=== PATIENT | female | born 1940 | race Caucasian/White ===

== ENCOUNTER 2019-05-25 16:35 | Inpatient (IN) | payer MEDICARE, OTHER ==
--- NOTE | 2019-05-25 17:05 | EDM.PDOC ---
ED HPI GENERAL MEDICAL PROBLEM - General Chief Complaint: General Stated Complaint: NVD,FLU,WEAKNESS Time Seen by Provider: 05/25/19 17:00 Source of Information: Reports: Patient, Family (Patient's son) History Limitations: Reports: Altered Mental Status (Patient resides at a memory unit and is a somewhat poor historian.) - History of Present Illness INITIAL COMMENTS - FREE TEXT/NARRATIVE: 79-year-old female who presents via private vehicle with her son from [facility] unit with reports of her having progressively increasing weakness and confusion since having vomiting and diarrhea last week. The vomiting and diarrhea have resolved but the patient continues to have weakness and poor by mouth intake. She has also had decreased urine output. She was seen and the [facility] in [place] on Thursday of this week and was able to provide a urine on Thursday and was felt to have a urinary tract infection. She was placed on ciprofloxacin for treatment of this UTI and has taken 2 days of the ciprofloxacin without any improvement in her weakness and in fact the son feels that she has actually progressively worsened since Thursday. The patient has dementia and cannot provide me with any history. She is also not able to provide me with any more information on pain either past or present. All the history comes from the son. The patient denied any pain to me. He does report that his mother was complaining of some lower back pain on Thursday but has not complained of any pain since then. No cough. No appearance of shortness of breath. No measured fevers. She did seem to be somewhat clammy and sweaty to the son today. This is all the history that I can obtain. There are no other associated signs or symptoms. There are no other modifying factors. Onset: Other (Last week with progressive weakness since last week) Duration: Getting Worse Location: Reports: Other (As above) Quality: Reports: Other (As above) Severity: Moderate (The weakness is moderate to severe) Improves with: Reports: None Worsens with: Reports: None Context: Reports: Other (As above) Associated Symptoms: Reports: Confusion (Worsening confusion), Diaphoresis, Loss of Appetite, Malaise, Weakness, Other (Poor by mouth intake) Treatments COOLER TENDER: Reports: Other Medication(s) (Ciprofloxacin) - Related Data Allergies Allergy/AdvReac Type Severity Reaction Status Date / Time No Known Allergies Allergy Verified 05/25/19 17:20 Home Meds: Home Meds Aspirin [Elle Chewable Aspirin] 81 mg PO 09/27/13 [History] Citalopram Hydrobromide [Celexa] 10 mg PO DAILY 09/27/13 [History] Donepezil HCl [Aricept] 10 mg PO 09/27/13 [History] Memantine HCl [Namenda Xr] 28 mg PO 09/27/13 [History] atorvaSTATin [Lipitor] 40 mg PO 09/27/13 [History] hydroCHLOROthiazide [Hydrochlorothiazide] 25 mg PO 09/27/13 [History] Calcium Carbonate [Tums] 200 mg PO ,03/20/16 [History] Ciprofloxacin [Ciprofloxacin HCl] 250 mg PO BID 05/25/19 [History] Lisinopril 20 mg PO 05/25/19 [History] metFORMIN [Glucophage] 500 mg PO ,05/25/19 [History] traZODone 50 mg PO 05/25/19 [History] Past Medical History Cardiovascular History: Reports: High Cholesterol, Hypertension Respiratory History: Reports: COPD Gastrointestinal History: Reports: GERD 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 Other Musculoskeletal History: LEFT SHOULDER FRACTURE Psychiatric History: Reports: Dementia - Past Surgical History Female Surgical History: Reports: Breast Biopsy Musculoskeletal Surgical History: Reports: Other (See Below) (Knee surgery) Social & Family History - Family History Family Medical History: Noncontributory - Tobacco Use Smoking Status *Q: Former Smoker (Nonsmoker for the past 3 years but was a heavy smoker prior to this.) - Caffeine Use Caffeine Use: Reports: Coffee, Soda, Tea - Alcohol Use Alcohol Use History: No - Living Situation & Occupation Living situation: Reports: Assisted Living (She lives in the memory unit at [facility]. She is here with her son.) Occupation: Retired ED ROS GENERAL - Review of Systems Review Of Systems: Unable To Obtain (The patient cannot provide me any of this information. The son provides me with any information that I get from this under the history of present illness) Reason Not Obtained: Dementia ED EXAM, GENERAL - Physical Exam Exam: See Below Exam Limited By: No Limitations General Appearance: Alert, Mild Distress, Obese, Other (Somewhat clammy.) Eye Exam: Bilateral Eye: EOMI, Normal Inspection, PERRL Ears: Normal External Exam, Hearing Grossly Normal Ear Exam: Bilateral Ear: Auricle Normal Nose: Normal Inspection, Normal Mucosa, No Blood Throat/Mouth: Normal Voice, No Airway Compromise, Other (Dry mucous membranes) Head: Atraumatic, Normocephalic Neck: Normal Inspection, Supple, Non-Tender, Full Range of Motion Respiratory/Chest: No Respiratory Distress, Lungs Clear, Normal Breath Sounds, No Accessory Muscle Use, Chest Non-Tender Cardiovascular: Normal Peripheral Pulses, Regular Rate, Rhythm, No JVD, No Murmur Peripheral Pulses: 2+: Radial (L), Radial (R) GI/Abdominal: Normal Bowel Sounds, Soft, Tender (Mild tenderness diffusely.), Other (Protuberant). No: Rebound Back Exam: Normal Inspection, Full Range of Motion Extremities: Normal Inspection, Normal Range of Motion, Non-Tender, No Pedal Edema, Normal Capillary Refill Neurological: Alert, CN II-XII Intact, No Motor/Sensory Deficits, Confused, Disoriented Skin Exam: Intact, No Rash, Diaphoretic, Pallor EKG INTERPRETATION EKG Date: 05/25/19 Time: 17:52 Rhythm: NSR Rate (Beats/Min): 89 [place]: LAD-Left [place] Deviation P-Wave: Present QRS: Other (Borderline IVCD) ST-T: Normal QT: Normal Comparison: NA - No Prior EKG EKG Interpretation Comments: No current of injury or ischemia is present. Course - Vital Signs Last Recorded V/S: Last Vital Signs Temp 36.8 C 05/25/19 18:56 Pulse 82 05/25/19 18:56 Resp 18 05/25/19 18:56 BP 141/76 H 05/25/19 18:56 Pulse Ox 97 05/25/19 18:56 - Orders/Labs/Meds Orders: Active Orders 24 hr Category Date Time Status Admission Status [Patient Status] [ADT] Routine ADT 05/25/19 20:45 Ordered Bladder Scan [RC] ASDIRECTED Care 05/25/19 17:58 Active Insert Urinary Catheter [OM.PC] Q24H Care 05/25/19 17:30 Ordered Abdomen Pelvis w wo Cont [CT] Stat Exams 05/25/19 19:21 Taken Chest 1V Frontal [CR] Stat Exams 05/25/19 17:27 Taken Head wo Cont [CT] Stat Exams 05/25/19 17:27 Taken CULTURE BLOOD [BC] Urgent Lab 05/25/19 19:28 Received CULTURE BLOOD [BC] Urgent Lab 05/25/19 19:35 Received CULTURE URINE [RM] Stat Lab 05/25/19 19:17 Received Sodium Chloride 0.9% [Normal Saline] 1,000 ml Med 05/25/19 18:45 Active IV ASDIRECTED Sodium Chloride 0.9% [Saline Flush] Med 05/25/19 17:24 Active 10 ml FLUSH ASDIRECTED PRN Blood Culture x2 Reflex Set [OM.PC] Urgent Oth 05/25/19 19:20 Ordered Peripheral IV Insertion Adult [OM.PC] Routine Oth 05/25/19 17:24 Ordered EKG 12 Lead [EK] Routine Ther 05/25/19 17:24 Ordered Medication Orders Sodium Chloride (Normal Saline) 1,000 mls @ 125 mls/hr IV ASDIRECTED UNRULY Last Infusion: 05/25/19 20:30 Dose: 125 mls/hr Infusion: 05/25/19 19:59 Dose: 999 mls/hr Admin: 05/25/19 19:21 Dose: 125 mls/hr Sodium Chloride (Saline Flush) 10 ml FLUSH ASDIRECTED PRN PRN Reason: Keep Vein Open Last Admin: 05/25/19 17:50 Dose: 10 ml Labs: Laboratory Tests 05/25/19 05/25/19 05/25/19 Range/Units 18:10 18:10 18:10 WBC 12.6 H (4.5-12.0) X10-3/uL RBC 3.90 (3.23-5.20) x10(6)uL Hgb 11.8 (11.5-15.5) g/dL Hct 34.7 (30.0-51.3) % MCV 88.8 (80-96) fL MCH 30.2 (27.7-33.6) pg MCHC 34.0 (32.2-35.4) g/dL RDW 13.8 (11.5-15.5) % Plt Count 305 (125-369) X10(3)uL MPV 8.5 (7.4-10.4) fL Neut % (Auto) 84.6 H (46-82) % Lymph % (Auto) 8.2 L (13-37) % Holmes % (Auto) 6.3 (4-12) % Eos % (Auto) 0 L (1.0-5.0) % Baso % (Auto) 1 (0-2) % Neut # (Auto) 10.6 H (1.6-8.3) # Lymph # (Auto) 1.0 (0.6-5.0) # Holmes # (Auto) 0.8 (0.0-1.3) # Eos # (Auto) 0.1 (0.0-0.8) # Baso # (Auto) 0.1 (0.0-0.2) # Sodium 139 (135-145) mmol/L Potassium 4.3 (3.5-5.3) mmol/L Chloride 99 L (100-110) mmol/L Carbon Dioxide 30 (21-32) mmol/L BUN 49 H (7-18) mg/dL Creatinine 1.5 H (0.55-1.02) mg/dL Est Cr Clr Drug Dosing 26.47 mL/min Estimated GFR (MDRD) 33 L (>60) BUN/Creatinine Ratio 32.7 H (9-20) Glucose 135 H (80-116) mg/dL Lactic Acid (0.4-2.0) mmol/L Calcium 8.9 (8.6-10.2) mg/dL Magnesium 1.6 L (1.8-2.5) mg/dL Total Bilirubin 0.8 (0.1-1.3) mg/dL AST 20 (5-25) IU/L ALT 18 (12-36) U/L Alkaline Phosphatase 65 (56-112) IU/L Troponin I 6.4 (4.0-60.3) pg/mL C-Reactive Protein 10.1 H* (0.5-0.9) mg/dL Total Protein 7.7 (6.0-8.0) g/dL Albumin 3.0 L (3.2-4.6) g/dL Globulin 4.7 g/dL Albumin/Globulin Ratio 0.6 Urine Color (YELLOW) Urine Appearance (CLEAR) Urine pH (5.0-6.5) Ur Specific [place] (1.010-1.025) Urine Protein (NEGATIVE) mg/dL Urine Glucose (UA) (NORMAL) mg/dL Urine Ketones (NEGATIVE) mg/dL Urine Occult Blood (NEGATIVE) Urine Nitrite (NEGATIVE) Urine Bilirubin (NEGATIVE) Urine Urobilinogen (NEGATIVE) mg/dL Ur Leukocyte Esterase (NEGATIVE) Urine RBC (0-5) Urine WBC (0-5) Ur Squamous Epith Cells (NS,R,O) Urine Bacteria (NS) 05/25/19 05/25/19 Range/Units 19:17 19:28 WBC (4.5-12.0) X10-3/uL RBC (3.23-5.20) x10(6)uL Hgb (11.5-15.5) g/dL Hct (30.0-51.3) % MCV (80-96) fL MCH (27.7-33.6) pg MCHC (32.2-35.4) g/dL RDW (11.5-15.5) % Plt Count (125-369) X10(3)uL MPV (7.4-10.4) fL Neut % (Auto) (46-82) % Lymph % (Auto) (13-37) % [place] % (Auto) (4-12) % Eos % (Auto) (1.0-5.0) % Baso % (Auto) (0-2) % Neut # (Auto) (1.6-8.3) # Lymph # (Auto) (0.6-5.0) # Holmes # (Auto) (0.0-1.3) # Eos # (Auto) (0.0-0.8) # Baso # (Auto) (0.0-0.2) # Sodium (135-145) mmol/L Potassium (3.5-5.3) mmol/L Chloride (100-110) mmol/L Carbon Dioxide (21-32) mmol/L BUN (7-18) mg/dL Creatinine (0.55-1.02) mg/dL Est Cr Clr Drug Dosing mL/min Estimated GFR (MDRD) (>60) BUN/Creatinine Ratio (9-20) Glucose (80-116) mg/dL Lactic Acid 1.9 (0.4-2.0) mmol/L Calcium (8.6-10.2) mg/dL Magnesium (1.8-2.5) mg/dL Total Bilirubin (0.1-1.3) mg/dL AST (5-25) IU/L ALT (12-36) U/L Alkaline Phosphatase (56-112) IU/L Troponin I (4.0-60.3) pg/mL C-Reactive Protein (0.5-0.9) mg/dL Total Protein (6.0-8.0) g/dL Albumin (3.2-4.6) g/dL Globulin g/dL Albumin/Globulin Ratio Urine Color Yellow (YELLOW) Urine Appearance Cloudy (CLEAR) Urine pH 5.0 (5.0-6.5) Ur Specific [place] 1.020 (1.010-1.025) Urine Protein Negative (NEGATIVE) mg/dL Urine Glucose (UA) Normal (NORMAL) mg/dL Urine Ketones Negative (NEGATIVE) mg/dL Urine Occult Blood Moderate H (NEGATIVE) Urine Nitrite Negative (NEGATIVE) Urine Bilirubin Negative (NEGATIVE) Urine Urobilinogen Normal (NEGATIVE) mg/dL Ur Leukocyte Esterase Large H (NEGATIVE) Urine RBC 5-10 H (0-5) Urine WBC 75-100 H (0-5) Ur Squamous Epith Cells Few H (NS,R,O) Urine Bacteria Many H (NS) Meds: Medications Generic Name Dose Route Start Last Admin Trade Name Freq PRN Reason Stop Dose Admin Sodium Chloride 1,000 mls @ 125 mls/hr 05/25/19 18:45 05/25/19 20:30 Normal Saline IV 125 mls/hr ASDIRECTED UNRULY Infusion Sodium Chloride 10 ml 05/25/19 17:24 05/25/19 17:50 Saline Flush FLUSH 10 ml ASDIRECTED PRN Administration Keep Vein Open Discontinued Medications Generic Name Dose Route Start Last Admin Trade Name Freq PRN Reason Stop Dose Admin Ceftriaxone Sodium 1 gm 05/25/19 19:21 05/25/19 19:31 Rocephin IVPUSH 05/25/19 19:22 1 gm ONETIME ONE Administration Sodium Chloride 500 mls @ 999 mls/hr 05/25/19 18:42 05/25/19 18:47 Normal Saline IV 05/25/19 19:12 999 mls/hr .BOLUS ONE Administration Sodium Chloride 500 mls @ 999 mls/hr 05/25/19 19:49 Normal Saline IV 05/25/19 20:19 .BOLUS ONE Iopamidol 100 ml 05/25/19 20:01 05/25/19 20:11 Isovue-370 (76%) IV 05/25/19 20:02 100 ml . DIRECTED ONE Administration - Radiology Interpretation Free Text/Narrative:: Chest x-ray shows no acute disease. CT scan of head shows no acute intracranial abnormality per the [facility] radiologist. - Re-Assessments/Exams Free Text/Narrative Re-Assessment/Exam: 05/25/19 19:15: Nursing staff was unable to get a Brooke initially but have been successful now with dark and cloudy appearing urine. Her white blood cell count is 12.6 and her CRP is elevated at 10. She appears to have a urinary tract infection but I will send her over for CT of her abdomen and pelvis secondary to her abdominal pain and the difficulty in evaluating her secondary to her altered mental status and I have also ordered IV fluids as she appears to be dehydrated with acute kidney injury as evidenced on her labs. I have also ordered a lactic acid, blood cultures 2 and IV Rocephin to be given. If the CT of her abdomen and pelvis does not show any other significant problem, I feel that she will need to be admitted for IV antibiotics, IV fluids and close monitoring. She has failed outpatient management of her UTI and dehydration. She will need at least a 2 midnight hospital stay to accomplish this plan of care. 05/25/19 20:00: CT of the patient's abdomen and pelvis showed a large intra- abdominal mass that is roughly the size of a basketball. The endoscopy tech brought this to my attention and I we will also have the patient get the contrast with her CT of her abdomen and pelvis. I discussed this with the patient's son. 05/25/19 20:43: CT scan of the abdomen and pelvis did show large pelvic mass that was concerning for ovarian cancer per the radiologist. I discussed this with the patient's son and the plan will be to admit the patient here for now with IV fluids and IV antibiotics to treat the pyelonephritis with dehydration and acute kidney injury. I did confirm with the time that the patient was a DNR. The pelvic/abdominal mass will need to be addressed but will leave this to the hospitalist. The patient will be admitted as an inpatient and care of the patient will go to Dr. Carlos at 7 AM on 05/26/2019. Departure - Departure Time of Disposition: 20:55 Disposition: Admitted As Inpatient 64 Condition: Fair Clinical Impression: Pyelonephritis, Acute kidney injury, Moderate dehydration, Rapidly progressive weakness, Failure of outpatient treatment, Intra-abdominal and pelvic swelling, mass and lump, unspecified site - Discharge Information Referrals: Eric Salinas MD [Primary Care Provider] - Forms: ED Department Discharge Sepsis Event Note - Evaluation Sepsis Screening Result: No Definite Risk - Focused Exam Vital Signs: Vital Signs Temp Pulse Resp BP Pulse Ox 05/25/19 18:56 36.8 C 82 18 141/76 H 97 05/25/19 16:53 36.6 C 90 16 136/84 98 Date Exam was Performed: 05/25/19 Time Exam was Performed: 20:47 - My Orders Last 24 Hours: My Active Orders 05/25/19 17:24 Sodium Chloride 0.9% [Saline Flush] 10 ml FLUSH ASDIRECTED PRN Peripheral IV Insertion Adult [OM.PC] Routine EKG 12 Lead [EK] Routine 05/25/19 17:27 Chest 1V Frontal [CR] Stat Head wo Cont [CT] Stat 05/25/19 17:30 Insert Urinary Catheter [OM.PC] Q24H 05/25/19 17:58 Bladder Scan [RC] ASDIRECTED 05/25/19 18:45 Sodium Chloride 0.9% [Normal Saline] 1,000 ml IV ASDIRECTED 05/25/19 19:17 CULTURE URINE [RM] Stat 05/25/19 19:20 Blood Culture x2 Reflex Set [OM.PC] Urgent 05/25/19 19:21 Abdomen Pelvis w wo Cont [CT] Stat 05/25/19 19:28 CULTURE BLOOD [BC] Urgent 05/25/19 19:35 CULTURE BLOOD [BC] Urgent 05/25/19 20:45 Admission Status [Patient Status] [ADT] Routine - Assessment/Plan Last 24 Hours: My Active Orders 05/25/19 17:24 Sodium Chloride 0.9% [Saline Flush] 10 ml FLUSH ASDIRECTED PRN Peripheral IV Insertion Adult [OM.PC] Routine EKG 12 Lead [EK] Routine 05/25/19 17:27 Chest 1V Frontal [CR] Stat Head wo Cont [CT] Stat 05/25/19 17:30 Insert Urinary Catheter [OM.PC] Q24H 05/25/19 17:58 Bladder Scan [RC] ASDIRECTED 05/25/19 18:45 Sodium Chloride 0.9% [Normal Saline] 1,000 ml IV ASDIRECTED 05/25/19 19:17 CULTURE URINE [RM] Stat 05/25/19 19:20 Blood Culture x2 Reflex Set [OM.PC] Urgent 05/25/19 19:21 Abdomen Pelvis w wo Cont [CT] Stat 05/25/19 19:28 CULTURE BLOOD [BC] Urgent 05/25/19 19:35 CULTURE BLOOD [BC] Urgent 05/25/19 20:45 Admission Status [Patient Status] [ADT] Routine
[2019-05-25] MEDS: Sodium Chloride 0.9% 10 ML Syringe FLUSH PRN (17:50)
[2019-05-25] MEDS ORDERED: Sodium Chloride 0.9% 500 ML IV ONE ×2 (18:42→19:49)
[2019-05-25] MEDS ORDERED: cefTRIAXone 2 GM Vial IVPUSH ONE (19:21)
[2019-05-25] MEDS: Sodium Chloride 0.9% 1,000 ML IV SCH ×2 (19:21→23:29)
[2019-05-25] MEDS ORDERED: Iopamidol 755 Mg/ML 100 ML Bottle IV ONE (20:01)
[2019-05-25] MEDS ORDERED: Acetaminophen 325 MG Tab PO PRN (21:16)
[2019-05-25] MEDS ORDERED: Ondansetron 4 MG/2 ML SDV IV PRN (21:16)
[2019-05-26] MEDS: Sodium Chloride 0.9% 1,000 ML IV SCH ×2 (06:19→23:00)
--- NOTE | 2019-05-26 08:49 | PCM.HP.2 ---
H&P History of Present Illness - General Date of Service: 05/26/19 Admit Problem/Dx: Admission Diagnosis/Problem Admission Diagnosis/Problem Pyelonephritis Source of Information: Family History Limitations: Reports: No Limitations, Other (Dementia) - History of Present Illness Initial Comments - Free Text/Narative: This is an 79-year-old female patient from [facility]. She's had a history of weakness and falls. She was seen in the clinic 3 days ago by me. She has labs and that she was not able to give a urine. Her son thought she probably had a UTI but had no symptoms of back pain or dysuria. They brought the urine the next day was positive and she was put on Cipro 250 mg twice a day. The patient had 3 doses but Getting weaker so the son brought to the ER and she was admitted. When the ER doc palpated her abdomen she had pain. The son says when I did it there is no pain but now that change. He CT of the abdomen that showed a kidney stone is nonobstructing and also large ovarian mass suspicious for ovarian cancer. They're not able to see the ovaries. She is admitted and put on Rocephin. She can answer questions but she is very demented. She denies fevers, back pain, abdominal pain, nausea. Not sure the answers I'm giving are accurate. Abdomen Pain Score (Numeric/FACES): 6 - Related Data Allergies/Adverse Reactions: Allergies Allergy/AdvReac Type Severity Reaction Status Date / Time No Known Allergies Allergy Verified 05/25/19 17:20 Home Medications: Home Meds Aspirin [Elle Chewable Aspirin] 81 mg PO 09/27/13 [History] Citalopram Hydrobromide [Celexa] 10 mg PO DAILY 09/27/13 [History] Donepezil HCl [Aricept] 10 mg PO 09/27/13 [History] Memantine HCl [Namenda Xr] 28 mg PO 09/27/13 [History] atorvaSTATin [Lipitor] 40 mg PO 09/27/13 [History] hydroCHLOROthiazide [Hydrochlorothiazide] 25 mg PO 09/27/13 [History] Calcium Carbonate [Tums] 200 mg PO ,03/20/16 [History] Ciprofloxacin [Ciprofloxacin HCl] 250 mg PO BID@05/25/19 [History] Lisinopril 20 mg PO 05/25/19 [History] metFORMIN [Glucophage] 500 mg PO 08,17 05/25/19 [History] traZODone HCl [Trazodone HCl] 25 mg PO BEDTIME 05/26/19 [History] Past Medical History HEENT History: Reports: Impaired Vision Cardiovascular History: Reports: High Cholesterol, Hypertension Respiratory History: Reports: COPD Gastrointestinal History: Reports: GERD Genitourinary History: Reports: Pyelonephritis, UTI, Recurrent [employer] History: Reports: Spontaneous Other Musculoskeletal History: LEFT SHOULDER FRACTURE Neurological History: Reports: Other (See Below) Other Neuro History: has dementia Psychiatric History: Reports: Dementia Endocrine/Metabolic History: Reports: Diabetes, Type II Oncologic (Cancer) History: Reports: Other (See Below) Other Oncologic History: Pelvic mass on CT - Past Surgical History Female Surgical History: Reports: Breast Biopsy Musculoskeletal Surgical History: Reports: Other (See Below) Social & Family History - Family History Family Medical History: Noncontributory - Tobacco Use Smoking Status *Q: Never Smoker Used Tobacco, but Quit: Yes Month/Year Tobacco Last Used: 2016 Second Hand Smoke Exposure: No - Caffeine Use Caffeine Use: Reports: Coffee - Recreational Drug Use Recreational Drug Use: No - Living Situation & Occupation Living situation: Reports: Assisted Living (She lives in the memory unit at [facility]. She is here with her son.) Occupation: Retired H&P Review of Systems - Review of Systems: Review Of Systems: See Below General: Reports: ROS unobtainable Exam - Exam Exam: See Below - Vital Signs Vital Signs: Last Vital Signs Temp 98.4 F 05/26/19 04:00 Pulse 77 05/26/19 04:00 Resp 16 05/26/19 04:00 BP 128/53 L 05/26/19 04:00 Pulse Ox 94 L 05/26/19 04:00 Weight: 205 lb 12.8 oz - Exam General: Alert, Cooperative. No: Oriented HEENT: Posterior Pharynx Clear, TMs Clear. No: Mucosa Moist & [place] Neck: Supple, Trachea Midline Lungs: Clear to Auscultation, Normal Respiratory Effort. No: Crackles, Rales, Rhonchi Cardiovascular: Regular Rate, Regular Rhythm. No: Systolic Murmur GI/Abdominal Exam: Normal Bowel Sounds, Tender (Diffuse) Back Exam: No: CVA Tenderness (R), CVA Tenderness (L) Extremities: Normal Inspection, Non-Tender, No Pedal Edema Skin: Warm, Dry Neuro Extensive - Mental Status: Alert, Normal Mood/Affect. No: Oriented x3 Neuro Extensive - Motor, Sensory, Reflexes: No: Normal Gait Psychiatric: Alert, Normal Mood - Patient Data Lab Results Last 24 hrs: Laboratory Results - last 24 hr 05/25/19 05/25/19 05/25/19 Range/Units 18:10 18:10 18:10 WBC 12.6 H (4.5-12.0) X10-3/uL RBC 3.90 (3.23-5.20) x10(6)uL Hgb 11.8 (11.5-15.5) g/dL Hct 34.7 (30.0-51.3) % MCV 88.8 (80-96) fL MCH 30.2 (27.7-33.6) pg MCHC 34.0 (32.2-35.4) g/dL RDW 13.8 (11.5-15.5) % Plt Count 305 (125-369) X10(3)uL MPV 8.5 (7.4-10.4) fL Neut % (Auto) 84.6 H (46-82) % Lymph % (Auto) 8.2 L (13-37) % [place] % (Auto) 6.3 (4-12) % Eos % (Auto) 0 L (1.0-5.0) % Baso % (Auto) 1 (0-2) % Neut # (Auto) 10.6 H (1.6-8.3) # Lymph # (Auto) 1.0 (0.6-5.0) # [place] # (Auto) 0.8 (0.0-1.3) # Eos # (Auto) 0.1 (0.0-0.8) # Baso # (Auto) 0.1 (0.0-0.2) # Sodium 139 (135-145) mmol/L Potassium 4.3 (3.5-5.3) mmol/L Chloride 99 L (100-110) mmol/L Carbon Dioxide 30 (21-32) mmol/L BUN 49 H (7-18) mg/dL Creatinine 1.5 H (0.55-1.02) mg/dL Est Cr Clr Drug Dosing 26.47 mL/min Estimated GFR (MDRD) 33 L (>60) BUN/Creatinine Ratio 32.7 H (9-20) Glucose 135 H (80-116) mg/dL POC Glucose (80-116) mg/dL Lactic Acid (0.4-2.0) mmol/L Calcium 8.9 (8.6-10.2) mg/dL Magnesium 1.6 L (1.8-2.5) mg/dL Total Bilirubin 0.8 (0.1-1.3) mg/dL AST 20 (5-25) IU/L ALT 18 (12-36) U/L Alkaline Phosphatase 65 (56-112) IU/L Troponin I 6.4 (4.0-60.3) pg/mL C-Reactive Protein 10.1 H* (0.5-0.9) mg/dL Total Protein 7.7 (6.0-8.0) g/dL Albumin 3.0 L (3.2-4.6) g/dL Globulin 4.7 g/dL Albumin/Globulin Ratio 0.6 Urine Color (YELLOW) Urine Appearance (CLEAR) Urine pH (5.0-6.5) Ur Specific [place] (1.010-1.025) Urine Protein (NEGATIVE) mg/dL Urine Glucose (UA) (NORMAL) mg/dL Urine Ketones (NEGATIVE) mg/dL Urine Occult Blood (NEGATIVE) Urine Nitrite (NEGATIVE) Urine Bilirubin (NEGATIVE) Urine Urobilinogen (NEGATIVE) mg/dL Ur Leukocyte Esterase (NEGATIVE) Urine RBC (0-5) Urine WBC (0-5) Ur Squamous Epith Cells (NS,R,O) Urine Bacteria (NS) 05/25/19 05/25/19 05/26/19 Range/Units 19:17 19:28 06:17 WBC (4.5-12.0) X10-3/uL RBC (3.23-5.20) x10(6)uL Hgb (11.5-15.5) g/dL Hct (30.0-51.3) % MCV (80-96) fL MCH (27.7-33.6) pg MCHC (32.2-35.4) g/dL RDW (11.5-15.5) % Plt Count (125-369) X10(3)uL MPV (7.4-10.4) fL Neut % (Auto) (46-82) % Lymph % (Auto) (13-37) % [place] % (Auto) (4-12) % Eos % (Auto) (1.0-5.0) % Baso % (Auto) (0-2) % Neut # (Auto) (1.6-8.3) # Lymph # (Auto) (0.6-5.0) # [place] # (Auto) (0.0-1.3) # Eos # (Auto) (0.0-0.8) # Baso # (Auto) (0.0-0.2) # Sodium (135-145) mmol/L Potassium (3.5-5.3) mmol/L Chloride (100-110) mmol/L Carbon Dioxide (21-32) mmol/L BUN (7-18) mg/dL Creatinine (0.55-1.02) mg/dL Est Cr Clr Drug Dosing mL/min Estimated GFR (MDRD) (>60) BUN/Creatinine Ratio (9-20) Glucose (80-116) mg/dL POC Glucose 120 H (80-116) mg/dL Lactic Acid 1.9 (0.4-2.0) mmol/L Calcium (8.6-10.2) mg/dL Magnesium (1.8-2.5) mg/dL Total Bilirubin (0.1-1.3) mg/dL AST (5-25) IU/L ALT (12-36) U/L Alkaline Phosphatase (56-112) IU/L Troponin I (4.0-60.3) pg/mL C-Reactive Protein (0.5-0.9) mg/dL Total Protein (6.0-8.0) g/dL Albumin (3.2-4.6) g/dL Globulin g/dL Albumin/Globulin Ratio Urine Color Yellow (YELLOW) Urine Appearance Cloudy (CLEAR) Urine pH 5.0 (5.0-6.5) Ur Specific [place] 1.020 (1.010-1.025) Urine Protein Negative (NEGATIVE) mg/dL Urine Glucose (UA) Normal (NORMAL) mg/dL Urine Ketones Negative (NEGATIVE) mg/dL Urine Occult Blood Moderate H (NEGATIVE) Urine Nitrite Negative (NEGATIVE) Urine Bilirubin Negative (NEGATIVE) Urine Urobilinogen Normal (NEGATIVE) mg/dL Ur Leukocyte Esterase Large H (NEGATIVE) Urine RBC 5-10 H (0-5) Urine WBC 75-100 H (0-5) Ur Squamous Epith Cells Few H (NS,R,O) Urine Bacteria Many H (NS) Result Diagrams: 05/25/19 18:10 05/25/19 18:10 Sepsis Event Note - Evaluation Sepsis Screening Result: No Definite Risk - Focused Exam Vital Signs: Vital Signs Temp Pulse Resp BP Pulse Ox 05/26/19 04:00 98.4 F 77 16 128/53 L 94 L 05/25/19 21:17 96 05/25/19 21:16 98.2 F 85 16 123/51 L 96 Date Exam was Performed: 05/26/19 Time Exam was Performed: 08:43 - Problem List (1) Dementia SNOMED Code(s): 71154903 ICD Code: F03.90 - UNSPECIFIED DEMENTIA WITHOUT BEHAVIORAL DISTURBANCE Status: Acute Current Visit: Yes (2) Kidney stone SNOMED Code(s): 65825770 ICD Code: N20.0 - CALCULUS OF KIDNEY Status: Acute Current Visit: Yes Problem Details: Nonobstructing (3) Palliative care status SNOMED Code(s): 596855197 ICD Code: Z51.5 - ENCOUNTER FOR PALLIATIVE CARE Status: Acute Current Visit: Yes (4) Pelvic mass in female SNOMED Code(s): 43848163, 648418114 ICD Code: R19.00 - INTRA-ABD AND PELVIC SWELLING, MASS AND LUMP, UNSP SITE Status: Acute Current Visit: Yes (5) Acute kidney injury SNOMED Code(s): 27026298, 01193693 ICD Code: N17.9 - ACUTE KIDNEY FAILURE, UNSPECIFIED Status: Acute Current Visit: Yes (6) Failure of outpatient treatment SNOMED Code(s): 610124531 ICD Code: Z78.9 - OTHER SPECIFIED HEALTH STATUS Status: Acute Current Visit: Yes (7) Moderate dehydration SNOMED Code(s): 2316872421514 ICD Code: E86.0 - DEHYDRATION Status: Acute Current Visit: Yes (8) Pyelonephritis SNOMED Code(s): 96260107 ICD Code: N12 - TUBULO-INTERSTITIAL NEPHRITIS, NOT SPCF ACUTE OR CHRONIC Status: Acute Current Visit: Yes Problem List Initiated/Reviewed/Updated: Yes Orders Last 24hrs: Active Orders 24 hr Category Date Time Status Admission Status [Patient Status] [ADT] Routine ADT 05/25/19 20:45 Active Accu Check [Blood Glucose Check, Bedside] [RC] BIDMEALS Care 05/26/19 08:40 Active Blood Glucose Check, Bedside [RC] QIDACANDBED Care 05/25/19 21:16 Active Height and Weight [RC] DAILY Care 05/25/19 21:16 Active Insert Urinary Catheter [OM.PC] Q24H Care 05/25/19 17:30 Ordered Intake and Output [RC] 06,14,22 Care 05/25/19 21:17 Active Oxygen Therapy [RC] PRN Care 05/25/19 21:16 Active Pulse Oximetry [RC] PRN Care 05/25/19 21:17 Active Up With Assistance [RC] ASDIRECTED Care 05/25/19 21:16 Active Urinary Catheter Assessment [RC] QSHIFT Care 05/25/19 21:16 Active Vital Signs [RC] 08,12,16,20,00,04 Care 05/25/19 21:16 Active Consult to Occupational Therapy [OT Evaluation and Cons 05/26/19 08:41 Active Treatment] [CONS] Routine Consult to Physical Therapy [PT Evaluation and Cons 05/26/19 08:40 Active Treatment] [CONS] Routine Consistent Carbohydrate Diet [DIET] Diet 05/26/19 Lunch Active Abdomen Pelvis w wo Cont [CT] Stat Exams 05/25/19 19:21 Taken Chest 1V Frontal [CR] Stat Exams 05/25/19 17:27 Taken Head wo Cont [CT] Stat Exams 05/25/19 17:27 Taken BASIC METABOLIC PANEL,BMP [CHEM] AM Lab 05/27/19 06:00 Ordered C Reactive Protein [C-REACTIVE PROTEIN] [CHEM] AM Lab 05/27/19 05:11 Ordered CBC WITH AUTO DIFF [HEME] AM Lab 05/27/19 05:11 Ordered CULTURE BLOOD [BC] Urgent Lab 05/25/19 19:28 Received CULTURE BLOOD [BC] Urgent Lab 05/25/19 19:35 Received CULTURE URINE [RM] Stat Lab 05/25/19 19:17 Received Acetaminophen [Tylenol] Med 03/11/20 21:16 Active 650 mg PO Q4H PRN Aspirin Med 05/27/19 08:00 Ordered 81 mg PO 08 Citalopram [Celexa] Med 05/26/19 09:00 Ordered 10 mg PO DAILY Donepezil [Aricept] Med 05/27/19 08:00 Ordered 10 mg PO 08 Enoxaparin [Lovenox] Med 05/26/19 08:45 Ordered 30 mg SUBCUT Q24H Memantine HCl Med 05/27/19 08:00 Ordered 28 mg PO 08 Ondansetron [Zofran] Med 05/25/19 21:16 Active 4 mg IV Q6H PRN Sodium Chloride 0.9% [Normal Saline] 1,000 ml Med 05/25/19 18:45 Active IV ASDIRECTED Sodium Chloride 0.9% [Saline Flush] Med 05/25/19 17:24 Active 10 ml FLUSH ASDIRECTED PRN atorvaSTATin [Lipitor] Med 05/26/19 20:00 Ordered 40 mg PO 20 cefTRIAXone [Rocephin] Med 05/26/19 19:00 Active 1 gm IVPUSH Q24H hydroCHLOROthiazide Med 05/27/19 08:00 Ordered 25 mg PO 08 lisinopriL [Prinivil] Med 05/26/19 20:00 Ordered 20 mg PO 20 metFORMIN [Glucophage] Med 05/26/19 17:00 Ordered 500 mg PO 08,17 traZODone Med 05/26/19 21:00 Ordered 25 mg PO BEDTIME Blood Culture x2 Reflex Set [OM.PC] Urgent Oth 05/25/19 19:20 Ordered Peripheral IV Insertion Adult [OM.PC] Routine Oth 05/25/19 17:24 Ordered Resuscitation Status Routine Resus Stat 05/25/19 21:16 Ordered EKG 12 Lead [EK] Routine Ther 05/25/19 17:24 Ordered Medication Orders Acetaminophen (Tylenol) 650 mg PO Q4H PRN PRN Reason: Pain (Mild 1-3)/fever Aspirin (Aspirin) 81 mg PO 08 [facility] Atorvastatin Calcium (Lipitor) 40 mg PO 20 [facility] Ceftriaxone Sodium (Rocephin) 1 gm IVPUSH Q24H [facility] Citalopram Hydrobromide (Celexa) 10 mg PO DAILY [facility] Donepezil HCl (Aricept) 10 mg PO 08 [facility] Enoxaparin Sodium (Lovenox) 30 mg SUBCUT Q24H [facility] Hydrochlorothiazide (Hydrochlorothiazide) 25 mg PO 08 [facility] Sodium Chloride (Normal Saline) 1,000 mls @ 125 mls/hr IV ASDIRECTED [facility] Last Admin: 05/26/19 06:19 Dose: 125 mls/hr Infusion: 05/26/19 06:19 Dose: 125 mls/hr Admin: 05/25/19 23:29 Dose: 125 mls/hr Infusion: 05/25/19 23:29 Dose: 125 mls/hr Infusion: 05/25/19 20:30 Dose: 125 mls/hr Infusion: 05/25/19 19:59 Dose: 999 mls/hr Admin: 05/25/19 19:21 Dose: 125 mls/hr Lisinopril (Prinivil) 20 mg PO 20 [facility] Metformin HCl (Glucophage) 500 mg PO 08,17 [facility] Non-Formulary Medication (Memantine Hcl) 28 mg PO 08 [facility] Ondansetron HCl (Zofran) 4 mg IV Q6H PRN PRN Reason: Nausea/Vomiting Sodium Chloride (Saline Flush) 10 ml FLUSH ASDIRECTED PRN PRN Reason: Keep Vein Open Last Admin: 05/25/19 17:50 Dose: 10 ml Trazodone HCl (Trazodone) 25 mg PO BEDTIME [facility] Assessment/Plan Comment:: 1. Admit to inpatient 2. IV fluids normal saline 3. Rocephin IV 4. Up in a diet with Accu-Cheks twice a day 5. PT/OT and up with assist 6. Brooke catheter 7. VTE prophylaxis with Lovenox 8. Repeat CBC, BMP and C-reactive protein in the a.m. 8. Patient's son was a power of book solicitor wants to ask if one of the surgeons would be willing to biopsy that mass. I will asked Dr. Aceves - Mortality Measure Prognosis:: Good
[2019-05-26] MEDS ORDERED: traMADol 50 MG Tab PO PRN (09:00)
[2019-05-26] MEDS: Enoxaparin 30 MG/0.3 ML Syringe SUBCUT SCH (09:37)
[2019-05-26] MEDS: Memantine HCl 28 MG CAP.ER PO SCH (09:37)
[2019-05-26] MEDS: Citalopram 10 MG Tab PO SCH (09:37)
[2019-05-26] MEDS: Donepezil 10 MG Tab PO SCH (09:37)
[2019-05-26] MEDS: Aspirin 81 MG Tab.Chew PO SCH (09:37)
[2019-05-26] MEDS: Hydrochlorothiazide 25 MG Tab PO SCH (09:38)
--- NOTE | 2019-05-26 11:17 | CR ---
INDICATION: Weakness. CHEST, ONE VIEW: AP portable upright view of the chest was obtained 05/25/2019 and compared with 04/26/2011. Exogenous obesity is again noted. The heart appears to be mildly enlarged, however, this appearance is likely to be on the basis of AP positioning and poor inspiration. The aorta is tortuous and calcified in the arch area. No consolidating pneumonia or effusion was seen. IMPRESSION: 1. No acute process. 2. Probable ASHD - heart may be somewhat enlarged - full inspiration PA and lateral views of the chest recommended for followup evaluation. 3. Exogenous obesity. MTDD
[2019-05-26] MEDS ORDERED: cefTRIAXone 1 GM in Sodium Chloride 0.9% 50 ML IV SCH (19:00)
[2019-05-26] MEDS ORDERED: cefTRIAXone 1 GM Vial IVPUSH SCH (19:00)
[2019-05-26] MEDS ORDERED: Lisinopril 20 MG Tab PO SCH (20:00)
[2019-05-26] MEDS ORDERED: atorvaSTATin 40 MG Tab PO SCH (20:00)
[2019-05-26] MEDS ORDERED: traZODone 50 MG Tab PO SCH (21:00)
[2019-05-27] MEDS: Enoxaparin 30 MG/0.3 ML Syringe SUBCUT SCH (08:25)
[2019-05-27] MEDS: Citalopram 10 MG Tab PO SCH (08:25)
[2019-05-27] MEDS: Aspirin 81 MG Tab.Chew PO SCH (08:25)
[2019-05-27] MEDS: Donepezil 10 MG Tab PO SCH (08:25)
[2019-05-27] MEDS: Hydrochlorothiazide 25 MG Tab PO SCH (08:25)
[2019-05-27] MEDS: Memantine HCl 28 MG CAP.ER PO SCH (08:25)
[2019-05-27 11:16] VITALS: BP 137/82; PULSE 66
[2019-05-27] MEDS ORDERED: cefTRIAXone 1 GM Vial IV ONE (12:00)
[2019-05-27] MEDS: Sodium Chloride 0.9% 10 ML Syringe FLUSH PRN (12:07)
--- NOTE | 2019-05-27 13:59 | PCM.DCSUM1 ---
Discharge Summary - Hospital Course HPI Initial Comments: This is an 79-year-old female patient from [facility], assisted living. She 's had a history of weakness and falls. She was seen in the clinic [address] Carlos, admitting physician. She had labs and she was not able to give a urine. Her son thought she probably had a UTI but had no symptoms of back pain or dysuria. They brought the urine the next day was positive and she was put on Cipro 250 mg twice a day. The patient had 3 doses but was getting weaker so the son brought to the ER and she was admitted. When the ER doc palpated her abdomen she had pain. The son says when I did it there is no pain but now that change. CT of the abdomen/pelvis showed a nonobstructing kidney stone on left and also large ovarian mass suspicious for ovarian cancer. They're not able to see the ovaries. She is admitted and put on Rocephin. She can answer questions but she is very demented. She denies fevers, back pain, abdominal pain, nausea. Not sure the answers I'm getting are accurate. Diagnosis: Stroke: No - Discharge Data Discharge Date: 05/27/19 Discharge Disposition: Home, W Home Health Agency 06 Condition: Fair - Referral to Home Health Date of Face to Face Encounter: 05/27/19 Reason for Homebound Status: [facility] for dementia Primary Care Physician: Eric Salinas MD Skilled Need: [facility], resume previous services. - Discharge Diagnosis/Problem(s) (1) Pyelonephritis SNOMED Code(s): 90341651 ICD Code: N12 - TUBULO-INTERSTITIAL NEPHRITIS, NOT SPCF ACUTE OR CHRONIC Status: Acute Current Visit: Yes (2) Moderate dehydration SNOMED Code(s): 5139742578050 ICD Code: E86.0 - DEHYDRATION Status: Acute Current Visit: Yes (3) Pelvic mass in female SNOMED Code(s): 99126241, 410937994 ICD Code: R19.00 - INTRA-ABD AND PELVIC SWELLING, MASS AND LUMP, UNSP SITE Status: Acute Current Visit: Yes (4) Kidney stone SNOMED Code(s): 95784713 ICD Code: N20.0 - CALCULUS OF KIDNEY Status: Chronic Current Visit: Yes Problem Details: Nonobstructing, left kidney (5) Dementia SNOMED Code(s): 38042972 ICD Code: F03.90 - UNSPECIFIED DEMENTIA WITHOUT BEHAVIORAL DISTURBANCE Status: Chronic Current Visit: Yes (6) HTN (hypertension) SNOMED Code(s): 83622717 ICD Code: I10 - ESSENTIAL (PRIMARY) HYPERTENSION Status: Chronic Current Visit: No Qualifiers: Hypertension type: essential hypertension Qualified Code(s): I10 - Essential (primary) hypertension (7) Hyperglycemia due to type 2 diabetes mellitus SNOMED Code(s): 250433269070835, 387744717262898 ICD Code: E11.65 - TYPE 2 DIABETES MELLITUS WITH HYPERGLYCEMIA Status: Chronic Current Visit: No Qualifiers: Diabetes mellitus longterm insulin use: without longterm use Qualified Code(s): E11.65 - Type 2 diabetes mellitus with hyperglycemia - Patient Summary/Data Consults: Consultations 05/26/19 08:40 Consult to Physical Therapy [PT Evaluation and Treatment] [CONS] Routine Please Evaluate and Treat. PT Reason for Consult: Strengthening This query below is only for informational purposes and is not editable. Admission Diagnosis/Problem: Pyelonephritis 05/26/19 08:41 Consult to Occupational Therapy [OT Evaluation and Treatment] [CONS] Routine Please Evaluate and Treat. OT Reason for Consult: Strengthening This query below is only for informational purposes and is not editable. Admission Diagnosis/Problem: Pyelonephritis Hospital Course: Clementina was admitted evening of with pyelonephritis, dehydration and incidental finding of large pelvic mass, suspected ovarian but they are not seen. Received 3 doses of Rocephin, urine culture from clinic grew E. coli, pansensitive. UC done in hospital shows no growth to date. She has responded well to IV antibiotics, she will go home with 4 more days of Ciprofloxacin for pyelonephritis. Hgb dropped from 11.4 on admission to 9.4, no black or blood stools or bleeding, most likely due to dilution from IVF. Family wanted to get biopsy of pelvic mass so that they could make informed decision whether to pursue palliative care/hospice or interventions such as surgery. Spoke with Interventional radiology who stated they would not as it would risk spreading to abdominal cavity. Surgeons locally also recommended against biopsy. Dr Scott, [place] cigarette paper tester recommended referral to Dr Bella Kern, Lapping Machine Set Up Operator/Oncology at [facility]. Spoke with Dr Kern's nurse who advised that they will review the CT that was pushed to [place] and review her records from this hospitalization and call Teo, her POA with appointment time which may be in [place] or [place] depending on how urgent they feel she needs to be seen. This was discussed with Teo and he was agreeable with plan. - Patient Instructions Diet: Regular Diet as Tolerated Activity: As Tolerated Notify Provider of: Fever, Increased Pain, Nausea and/or Vomiting Other/Special Instructions: Follow up with Dr Salinas on June 01 for recheck of urine. Dr Bella Kern's office at [facility] gynecology/ oncology clinic will be calling Teo once they review her records and CT as to appointment time. - Discharge Plan *PRESCRIPTION DRUG MONITORING PROGRAM REVIEWED*: No *COPY OF PRESCRIPTION DRUG MONITORING REPORT IN PATIENT KYLE: No Home Medications: Home Meds Aspirin [Elle Chewable Aspirin] 81 mg PO 09/27/13 [History] Citalopram Hydrobromide [Celexa] 10 mg PO DAILY 09/27/13 [History] Donepezil HCl [Aricept] 10 mg PO 09/27/13 [History] Memantine HCl [Namenda Xr] 28 mg PO 09/27/13 [History] atorvaSTATin [Lipitor] 40 mg PO 09/27/13 [History] hydroCHLOROthiazide [Hydrochlorothiazide] 25 mg PO 09/27/13 [History] Calcium Carbonate [Tums] 200 mg PO ,20 03/20/16 [History] Lisinopril 20 mg PO 20 05/25/19 [History] metFORMIN [Glucophage] 500 mg PO ,05/25/19 [History] traZODone HCl [Trazodone HCl] 25 mg PO BEDTIME 05/26/19 [History] Ciprofloxacin [Ciprofloxacin HCl] 250 mg PO BID@ 4 Days #8 tab 05/27/19 [Rx ] Patient Handouts: Urinary Tract Infection, Adult, [id number] Forms: ED Department Discharge Referrals: Eric Salinas MD [Primary Care Provider] - - Discharge Summary/Plan Comment DC Time >30 min.: Yes - General Info Date of Service: 05/27/19 Subjective Update: She has no complaints today, pleasantly confused. No fevers, chills. No vomiting or diarrhea, day 3 of Rocephin. Jason, her son who is POA had discussed with his family about the pelvic mass, possible ovarian cancer. They would like to be evaluated to see if malignant so they can make an informed decision in regards to her care. - Patient Data Vitals - Most Recent: Last Vital Signs Temp 98.1 F 05/27/19 08:00 Pulse 66 05/27/19 08:00 Resp 16 05/27/19 08:00 BP 137/82 05/27/19 08:00 Pulse Ox 98 05/27/19 08:00 Weight - Most Recent: 211 lb 7 oz I&O - Last 24 hours: Intake & Output 05/26/19 05/27/19 05/27/19 22:59 06:59 14:59 Intake Total 993 851 Output Total 280 375 100 Balance 713 476 -100 Lab Results - Last 24 hrs: Laboratory Results - last 24 hr 05/26/19 05/27/19 05/27/19 Range/Units 17:47 05:35 06:35 WBC 10.2 (4.5-12.0) X10-3/uL RBC 3.08 L (3.23-5.20) x10(6)uL Hgb 9.4 L (11.5-15.5) g/dL Hct 27.7 L (30.0-51.3) % MCV 89.7 (80-96) fL MCH 30.5 (27.7-33.6) pg MCHC 34.0 (32.2-35.4) g/dL RDW 13.9 (11.5-15.5) % Plt Count 247 (125-369) X10(3)uL MPV 8.3 (7.4-10.4) fL Neut % (Auto) 76.3 (46-82) % Lymph % (Auto) 15.7 (13-37) % [place] % (Auto) 6.4 (4-12) % Eos % (Auto) 1 (1.0-5.0) % Baso % (Auto) 0 (0-2) % Neut # (Auto) 7.8 (1.6-8.3) # Lymph # (Auto) 1.6 (0.6-5.0) # [place] # (Auto) 0.7 (0.0-1.3) # Eos # (Auto) 0.1 (0.0-0.8) # Baso # (Auto) 0.0 (0.0-0.2) # Sodium (135-145) mmol/L Potassium (3.5-5.3) mmol/L Chloride (100-110) mmol/L Carbon Dioxide (21-32) mmol/L BUN (7-18) mg/dL Creatinine (0.55-1.02) mg/dL Est Cr Clr Drug Dosing mL/min Estimated GFR (MDRD) (>60) BUN/Creatinine Ratio (9-20) Glucose (80-116) mg/dL POC Glucose 117 H 107 (80-116) mg/dL Calcium (8.6-10.2) mg/dL C-Reactive Protein (0.5-0.9) mg/dL 05/27/19 05/27/19 Range/Units 06:35 06:35 WBC (4.5-12.0) X10-3/uL RBC (3.23-5.20) x10(6)uL Hgb (11.5-15.5) g/dL Hct (30.0-51.3) % MCV (80-96) fL MCH (27.7-33.6) pg MCHC (32.2-35.4) g/dL RDW (11.5-15.5) % Plt Count (125-369) X10(3)uL MPV (7.4-10.4) fL Neut % (Auto) (46-82) % Lymph % (Auto) (13-37) % [place] % (Auto) (4-12) % Eos % (Auto) (1.0-5.0) % Baso % (Auto) (0-2) % Neut # (Auto) (1.6-8.3) # Lymph # (Auto) (0.6-5.0) # [place] # (Auto) (0.0-1.3) # Eos # (Auto) (0.0-0.8) # Baso # (Auto) (0.0-0.2) # Sodium 142 (135-145) mmol/L Potassium 3.3 L D (3.5-5.3) mmol/L Chloride 105 D (100-110) mmol/L Carbon Dioxide 29 (21-32) mmol/L BUN 23 H D (7-18) mg/dL Creatinine 0.9 (0.55-1.02) mg/dL Est Cr Clr Drug Dosing 44.11 mL/min Estimated GFR (MDRD) > 60 (>60) BUN/Creatinine Ratio 25.6 H (9-20) Glucose 107 (80-116) mg/dL POC Glucose (80-116) mg/dL Calcium 7.8 L (8.6-10.2) mg/dL C-Reactive Protein 9.9 H* (0.5-0.9) mg/dL ANITHA Results - Last 24 hrs: Microbiology 05/25/19 19:28 Aerobic Blood Culture - Preliminary Blood NO GROWTH AFTER 1 DAY Anaerobic Blood Culture - Preliminary NO GROWTH AFTER 1 DAY 05/25/19 19:35 Aerobic Blood Culture - Preliminary Blood - Venous - Lab Draw NO GROWTH AFTER 1 DAY Anaerobic Blood Culture - Preliminary NO GROWTH AFTER 1 DAY 05/25/19 19:17 Urine Culture - Preliminary Urine, Catheterized NO GROWTH AFTER 1 DAY Med Orders - Current: Current Medications Acetaminophen (Tylenol) 650 mg PO Q4H PRN PRN Reason: Pain (Mild 1-3)/fever Last Admin: 05/26/19 08:55 Dose: 650 mg Aspirin (Aspirin) 81 mg PO 08 [facility] Last Admin: 05/27/19 08:25 Dose: 81 mg Atorvastatin Calcium (Lipitor) 40 mg PO 20 [facility] Last Admin: 05/26/19 20:35 Dose: 40 mg Citalopram Hydrobromide (Celexa) 10 mg PO DAILY [facility] Last Admin: 05/27/19 08:25 Dose: 10 mg Donepezil HCl (Aricept) 10 mg PO 08 [facility] Last Admin: 05/27/19 08:25 Dose: 10 mg Enoxaparin Sodium (Lovenox) 30 mg SUBCUT Q24H [facility] Last Admin: 05/27/19 08:25 Dose: 30 mg Hydrochlorothiazide (Hydrochlorothiazide) 25 mg PO 08 [facility] Last Admin: 05/27/19 08:25 Dose: 25 mg Lisinopril (Prinivil) 20 mg PO 20 [facility] Last Admin: 05/26/19 20:35 Dose: 20 mg Memantine (Namenda Xr) 28 mg PO DAILY@0800 [facility] Last Admin: 05/27/19 08:25 Dose: 28 mg Ondansetron HCl (Zofran) 4 mg IV Q6H PRN PRN Reason: Nausea/Vomiting Sodium Chloride (Saline Flush) 10 ml FLUSH ASDIRECTED PRN PRN Reason: Keep Vein Open Last Admin: 05/27/19 12:07 Dose: 10 ml Tramadol HCl (Ultram) 50 mg PO Q6H PRN PRN Reason: pain Discontinued Medications Ceftriaxone Sodium (Rocephin) 1 gm IVPUSH ONETIME ONE Stop: 05/25/19 19:22 Last Admin: 05/25/19 19:31 Dose: 1 gm Ceftriaxone Sodium (Rocephin) 1 gm IVPUSH Q24H [facility] Last Admin: 05/26/19 18:38 Dose: 1 gm Ceftriaxone Sodium (Rocephin) 1 gm IV ONETIME ONE Stop: 05/27/19 12:01 Last Admin: 05/27/19 12:07 Dose: 1 gm Sodium Chloride (Normal Saline) 1,000 mls @ 75 mls/hr IV ASDIRECTED [facility] Last Infusion: 05/26/19 23:00 Dose: 100 mls/hr Sodium Chloride (Normal Saline) 500 mls @ 999 mls/hr IV .BOLUS ONE Stop: 05/25/19 19:12 Last Admin: 05/25/19 18:47 Dose: 999 mls/hr Sodium Chloride (Normal Saline) 500 mls @ 999 mls/hr IV .BOLUS ONE Stop: 05/25/19 20:19 Last Admin: 05/25/19 20:48 Dose: Not Given Ceftriaxone Sodium 1 gm/ (Sodium Chloride) 50 mls @ 200 mls/hr IV Q24H [facility] Iopamidol (Isovue-370 (76%)) 100 ml IV . DIRECTED ONE Stop: 05/25/19 20:02 Last Admin: 05/25/19 20:11 Dose: 100 ml Metformin HCl (Glucophage) 500 mg PO UNRULY Trazodone HCl (Trazodone) 25 mg PO BEDTIME [facility] - Exam General: Reports: Alert (pleasantly confused, oriented to person), Cooperative, No Acute Distress Lungs: Reports: Clear to Auscultation, Normal Respiratory Effort Cardiovascular: Reports: Regular Rate, Regular Rhythm, Murmurs GI/Abdominal Exam: Normal Bowel Sounds, Soft, Distended, Tender (Lower quadrants ) Extremities: No Pedal Edema Skin: Reports: Warm, Dry, Intact
[2019-05-28] MEDS ORDERED: metFORMIN 500 MG Tab PO SCH (08:00)
== END 2019-05-27 14:00 | disposition home health service (06) | DRG 694 ==
LOC: FB.ED 16:35 → FB.MS 20:56
PROVIDERS: ADMIT Emergency Medicine; ATTEND Family Medicine
DX: N20.0 Calculus of kidney (principal); C56.2 Malignant neoplasm of left ovary; N17.9 Acute kidney failure, unspecified; H54.7 Unspecified visual loss; E86.0 Dehydration; Z66 Do not resuscitate; R53.1 Weakness; R19.00 Intra-abdominal and pelvic swelling, mass and lump, unspecified site; E78.00 Pure hypercholesterolemia, unspecified; E11.9 Type 2 diabetes mellitus without complications; B96.20 Unspecified Escherichia coli [E. coli] as the cause of diseases classified elsewhere; Z51.5 Encounter for palliative care; I10 Essential (primary) hypertension; J44.9 Chronic obstructive pulmonary disease, unspecified; E11.65 Type 2 diabetes mellitus with hyperglycemia; Z91.81 History of falling; K21.9 Gastro-esophageal reflux disease without esophagitis; Z79.84 Long term (current) use of oral hypoglycemic drugs; F03.90 Unspecified dementia, unspecified severity, without behavioral disturbance, psychotic disturbance, mood disturbance, and anxiety; Z79.82 Long term (current) use of aspirin; Z87.891 Personal history of nicotine dependence; Z79.899 Other long term (current) drug therapy
CPT/HCPCS: 36415; 51702; 51798; 70450; 71045; 74178; 80053; 81001; 83605; 83735; 84484; 85025; 86140; 87040 ×2; 87086; 93005; 96361; 96374; 99284; 99285; J0696; J7030; J7040; Q9967; 80048; 82962; 97161-GP; 97165-GO; A9270-GY; J1650